=== PATIENT | male | born 1970 | race Caucasian/White ===

== ENCOUNTER 2016-08-01 06:42 | Emergency (ER) | payer MEDICAID ==
[~2016-08-01] VITALS: Ht 195.6 cm; Wt 95.4 kg
[2016-08-01 06:44] VITALS: BP 133/85
[2016-08-01] MEDS ORDERED: QUET300T5 PO ×2 (06:54)
[2016-08-01] MEDS ORDERED: RISP1TAB45 PO (06:54)
== END 2016-08-01 07:33 | disposition home or self-care (01) ==
LOC: ED 07:25
DX: Z76.0 Encounter for issue of repeat prescription (principal); F31.9 Bipolar disorder, unspecified; F12.10 Cannabis abuse, uncomplicated
CPT/HCPCS: 99283